=== PATIENT | male | born 1980 | race Native Hawaiian/Other Pacific Islander ===

== ENCOUNTER 2019-03-28 18:39 | Emergency (ER) | payer OTHER ==
[2019-03-28] MEDS ORDERED: ACETAMINOPHEN 500 MG TAB ONE (22:12)
[2019-03-28] MEDS ORDERED: ACETAMINOPHEN 500 MG TAB PO ONE (22:12)
[2019-03-28] MEDS ORDERED: TETANUS,DIPH,PERTUSS(ACELL) VACCINE 0.5 ML SYRINGE IM ONE (23:47)
[2019-03-28] MEDS ORDERED: HYDROcodone/ACETAMINOPHEN 5-325 MG TAB PO ONE (23:47)
--- NOTE | 2019-03-29 00:55 | Emergency Department Report ---
ED Head Injury/Laceration HPI - HPI Location: Facial, Frontal Pain: Mild Tetanus Status: Not up to Date Symptoms: Loss of Consciousness: No, Nausea: No, Blurred Vision: No, Unusual Behavior: No, Headache: Yes, Bruising: Yes, Break in Skin: Yes (1 cm laceration forhead ), Bleeding: No Other History: pt states forehead laceration 1 cm s/p drill versus forehead this am. incident 18 hrs ago, pt works as building construction contractor, there was no loc , pt completed work duties today and presents tonight for lacerationr repair and headache 06/14 aching. ED General PMH - Social History Smoking Status: Current Some Day Smoker ED Review of Systems ROS: Stated complaint: GASH ON HEAD/ ACCIDENT ON THE JOB Other details as noted in HPI Constitutional: denies: chills, fever Eyes: denies: eye pain, eye discharge, vision change ENT: denies: ear pain, throat pain Respiratory: denies: cough, shortness of breath, wheezing Cardiovascular: denies: chest pain, palpitations Endocrine: no symptoms reported Gastrointestinal: denies: abdominal pain, nausea, diarrhea Genitourinary: denies: urgency, dysuria Musculoskeletal: denies: back pain, joint swelling, arthralgia Skin: other (forehead laceration) Neurological: headache. denies: numbness, paresthesias, confusion, abnormal gait, vertigo Psychiatric: denies: anxiety, depression Hematological/Lymphatic: denies: easy bleeding, easy bruising Head Inj w/lac Physical Exam - Exam General: Vital signs noted. No distress. Alert and acting appropriately. Head: Yes PERRL, Yes Hematoma/Ecchymosis, No Hemotympanum, No Epistaxis, No Stepoff/Deformity, No Abrasion, No Foreign Body Wound Length (cm): 1 Laceration Location: Facial, Frontal Chest, Abd, & Ext: Yes Clear Lung Sounds, Yes Regular Heart Rhythm, No Neck Pain, No Chest Injury/Pain, No Heart Murmur, No Abdominal Tenderness, No Back Tenderness, No Extremity Injury Neuroligical (Head Inj W/O Lac: Yes Normal Speech, Yes Normal Gait, No Lethargy, No Disorientation, No Focal Numbness, No Focal Weakness Exam: forehead laceration less than 1 cm, mild forehead swelling no ecchymosis, no deformity no stepoff. - Laceration /Wound Repair Face Wound Location: face (forhead lac 0.5 cm , superficial, no bleeding) Wound Length (cm): 1 (lest than 1 cm ) Wound's Depth, Shape: superficial Wound Explored: clean Irrigated w/ Saline (ccs): 30 Betadine Prep?: Yes Wound Debrided: nonrequired Wound Repaired With: Steri-strips (1), Dermabond Progress: for head laceration , less than 1 cm, site cleaned with sterile saline, wound visualized , no foreign bodies, wound irrigated with sterile saline 30 cc, wound close with dermabond and 1 steristrip, edges well approximated, all bleeding is controlled pt tolerated procedure with minimal distress. ED Disposition Clinical Impression: Forehead laceration Qualifiers: Encounter type: initial encounter Qualified Code(s): S01.81XA - Laceration without foreign body of other part of head, initial encounter Minor head injury Qualifiers: Encounter type: initial encounter Qualified Code(s): S09.90XA - Unspecified injury of head, initial encounter Disposition: TO HOME OR SELFCARE Is pt being admited?: No Does the pt Need Aspirin: No Condition: Stable Instructions: Laceration (ED), Skin Adhesive Care (ED), Minor Head Injury (ED) Prescriptions: cephALEXin [Keflex] 500 mg PO Q8HR 7 Days #21 cap Acetaminophen/Codeine [Tylenol /Codeine # 3 tab] 1 tab PO Q6H PRN #12 tab PRN Reason: Pain , Severe (7-10) Referrals: [facility] [Outside] - 3-5 Days Forms: Work/School Release Form(ED) Time of Disposition: 01:13
[2019-03-29 00:56] VITALS: BP 117/60
== END 2019-03-29 01:26 | disposition home or self-care (01) ==
LOC: ED 18:39
DX: S01.81XA Laceration without foreign body of other part of head, initial encounter (principal); X58.XXXA Exposure to other specified factors, initial encounter; Y93.89 Activity, other specified; Y92.89 Other specified places as the place of occurrence of the external cause; Y99.8 Other external cause status
CPT/HCPCS: 90471; 90715